=== PATIENT | female | born 1990 | race Caucasian/White ===

== ENCOUNTER 2022-03-20 16:18 | Emergency (ER) | payer OTHER ==
[2022-03-20 17:47] LABS: BUN/CREAT RATIO (CALC) 14.6 RATIO; CREATININE 1.03 mg/dL (0.51-0.95)
[2022-03-20 17:52] LABS: BASOPHIL 0.5 % (0-2); EOSINOPHIL 1.8 % (0-5); HCT 39.8 % (37.0-47.0); HGB 12.5 g/dl (12.5-16.0); LYMPHOCYTE 25.6 % (15-48); MCHC 31.4 g/dL (32.0-36.0); MONOCYTE 5.6 % (0-12); MPV 11.6 fL (6.0-9.5); NEUTROPHIL 66.2 % (41-80); NRBC 0; PLT 397 K/uL (150-400); RBC 4.47 M/uL (4.20-5.40); RDW 13.4 % (11.5-14.0); WBC 10.1 K/uL (4.0-10.5)
[2022-03-20 19:06] LABS: BILIRUBIN NEGATIVE (NEGATIVE); BLOOD TRACE-INTACT Ery/uL (NEGATIVE); CLARITY CLEAR (CLEAR); COLOR YELLOW (YELLOW); GLUCOSE (U) NORMAL (NORMAL); LEUKOCYTES TRACE Leu/uL (NEGATIVE); NITRITE NEGATIVE (NEGATIVE); PROTEIN NEGATIVE (NEGATIVE); SPECIFIC GRAVITY <=1.005 (1.001-1.030); UROBILINOGEN 0.2 mg/dL (0.2-1.0)
[2022-03-20 19:22] LABS: BACTERIA TRACE
[2022-03-20 23:32] LABS: CREATININE 0.93 mg/dL (0.51-0.95)
[2022-03-20 23:38] LABS: POTASSIUM 4.5 mmol/L (3.5-5.1)
[2022-03-21] MEDS ORDERED: ONDANSETRON ODT4 MG PO (00:35)
[2022-03-21] MEDS ORDERED: NAPROXEN500 MG PO (00:35)
[2022-03-21] MEDS ORDERED: RIZATRIPTAN10 M1 SL (00:35)
== END 2022-03-21 01:27 | disposition home or self-care (01) ==
LOC: FER 16:18
PROVIDERS: Nurse Practitioner Family
DX: R51.9 Headache, unspecified (principal); E87.5 Hyperkalemia; Z88.0 Allergy status to penicillin; Z88.5 Allergy status to narcotic agent; Z88.8 Allergy status to other drugs, medicaments and biological substances
CPT/HCPCS: 36415; 70450; 80048; 81001; 85025; 87088; 96372; J1100; J1200; J1885; J2405; J2550; J3030; J7030